=== PATIENT | female | born 1965 | race Caucasian/White ===

== ENCOUNTER 2019-11-01 11:21 | Inpatient (IN) | payer OTHER ==
[~2019-11-01] VITALS: Ht 160 cm; Wt 70.6 kg
[~2019-11-01 11:21] MED LIST: ALBU90OI INH; OXYACE10 PO; OXYACE5T PO
[2019-11-01 12:21] LABS: BASOPHILS ABSOLUTE AUTO 0.08 K/mm3 (0.00-0.23); BASOPHILS PERCENT AUTO 1 % (0-2); EOSINOPHILS ABSOLUTE AUTO 0.07 K/mm3 (0.00-0.68); EOSINOPHILS PERCENT AUTO 1 % (0-6); Hematocrit 43.8 % (33.0-51.0); IMMATURE GRAN ABSOLUTE AUTO 0.09 K/mm3 (0.00-0.10); IMMATURE GRAN PERCENT AUTO 1 % (0-1); LYMPHOCYTES ABSOLUTE AUTO 1.64 K/mm3 (0.84-5.20); LYMPHOCYTES PERCENT AUTO 13 % (21-46); MONOCYTES ABSOLUTE AUTO 0.92 K/mm3 (0.16-1.47); MONOCYTES PERCENT AUTO 8 % (4-13); Mean Corpuscular HGB 29.5 pg (26.0-34.0); Mean Corpuscular Volume 92 fL (80-100); Mean Platelet Volume 9.4 fL (9.1-12.4); NEUTROPHILS ABSOLUTE AUTO 9.54 K/mm3 (1.96-9.15); NEUTROPHILS PERCENT AUTO 77 % (41-73); Platelet Count 508 K/mm3 (150-400); RDW Coefficient Variation 13.2 % (11.7-14.2); RDW Standard Deviation 44.9 fL (35.1-46.3); Red Blood Cell Count 4.74 M/mm3 (3.80-5.20); White Blood Cell Count 12.34 K/mm3 (4.00-11.30)
[2019-11-01 12:44] LABS: Alanine Aminotransfer (ALT/SGP 17 U/L (12-78); Albumin, Blood 2.3 g/dL (3.4-5.0); Albumin/Globulin Ratio 0.5 (0.8-1.8); Alk Phos 157 U/L (50-136); Anion Gap 8 mmol/L (6-16); Aspartate Aminotrans (AST/SGOT 12 U/L (12-37); Bilirubin, Total 0.3 mg/dL (0.1-1.0); Blood Urea Nitrogen 15 mg/dL (8-24); Bun/Creatinine Ratio 19.9 (12.0-20.0); CO2, Blood 29 mmol/L (21-32); Calcium, Blood 9.6 mg/dL (8.5-10.1); Chloride, Blood 103 mmol/L (98-108); Creatinine, Blood 0.76 mg/dL (0.40-1.00); Globulin, Blood 5.1 g/dL (2.2-4.0); Glomerular Filtration Rate >60 (60-); Glucose, Blood 103 mg/dL (70-99); Potassium, Blood 3.5 mmol/L (3.5-5.5); Sodium, Blood 140 mmol/L (136-145); Total Protein, Blood 7.4 g/dL (6.4-8.2); Troponin I <0.015 ng/mL (0.000-0.040)
[2019-11-01 12:53] LABS: Influenza A Negative (NEGATIVE); Influenza B Negative (NEGATIVE)
--- NOTE | 2019-11-01 19:00 | NUR ---
PT. LYING QUIETLY SEVERAL FAMILY MEMBERS IN ROOM. NO NOTEABLE CHANGES SINCE COMIMG TO FLOOR,
--- NOTE | 2019-11-02 01:58 | NUR ---
BEGINNING SHIFT SUMMARY ASSUMED CARE OF PT AT 1900. PT IS A/O X4, FAMILY PRESENT. PT STATES THAT SHE IS FEELING BETTER. HEART SOUNDS REGULAR. FINE CRACKLES AT BASES OF LUNGS, ON 2L O2, NORMALLY RA, HAS HACKING AND PRODUCTIVE COUGH, PT DENIES SOB/ DYSPNEA AT THIS TIME. PT HAD INCONTINENCE EPISODE DUE TO COUGH. PT IS HOT AND SWEATY, PT STATES THAT SHE IS HAVING HOT FLASHES OCCATIONALLY. PT IS CURRENTLY AWAKE COUGHING, CALL LIGHT IN REACH, BED IN LOWEST POSTION, WILL CONTINUE TO MONITOR.
[2019-11-02 05:22] LABS: BASOPHILS ABSOLUTE AUTO 0.02 K/mm3 (0.00-0.23); BASOPHILS PERCENT AUTO 0 % (0-2); EOSINOPHILS PERCENT AUTO 0 % (0-6); Hematocrit 44.6 % (33.0-51.0); Hemoglobin 14.1 g/dL (11.5-16.0); IMMATURE GRAN ABSOLUTE AUTO 0.07 K/mm3 (0.00-0.10); IMMATURE GRAN PERCENT AUTO 1 % (0-1); LYMPHOCYTES ABSOLUTE AUTO 0.91 K/mm3 (0.84-5.20); LYMPHOCYTES PERCENT AUTO 9 % (21-46); MONOCYTES ABSOLUTE AUTO 0.15 K/mm3 (0.16-1.47); MONOCYTES PERCENT AUTO 1 % (4-13); Mean Corpuscular HGB 29.4 pg (26.0-34.0); Mean Corpuscular HGB Conc 31.6 g/dL (31.5-36.5); Mean Corpuscular Volume 93 fL (80-100); Mean Platelet Volume 9.3 fL (9.1-12.4); NEUTROPHILS ABSOLUTE AUTO 9.61 K/mm3 (1.96-9.15); NEUTROPHILS PERCENT AUTO 89 % (41-73); Platelet Count 581 K/mm3 (150-400); RDW Coefficient Variation 13.2 % (11.7-14.2); RDW Standard Deviation 45.2 fL (35.1-46.3); White Blood Cell Count 10.76 K/mm3 (4.00-11.30)
[2019-11-02 05:50] LABS: Alanine Aminotransfer (ALT/SGP 15 U/L (12-78); Albumin, Blood 2.4 g/dL (3.4-5.0); Albumin/Globulin Ratio 0.5 (0.8-1.8); Alk Phos 149 U/L (50-136); Anion Gap 8 mmol/L (6-16); Aspartate Aminotrans (AST/SGOT 12 U/L (12-37); Bilirubin, Total 0.2 mg/dL (0.1-1.0); Blood Urea Nitrogen 15 mg/dL (8-24); Bun/Creatinine Ratio 22.2 (12.0-20.0); CO2, Blood 26 mmol/L (21-32); Calcium, Blood 9.7 mg/dL (8.5-10.1); Chloride, Blood 106 mmol/L (98-108); Creatinine, Blood 0.68 mg/dL (0.40-1.00); Globulin, Blood 5.3 g/dL (2.2-4.0); Glomerular Filtration Rate >60 (60-); Glucose, Blood 122 mg/dL (70-99); Potassium, Blood 4.3 mmol/L (3.5-5.5); Sodium, Blood 140 mmol/L (136-145); Total Protein, Blood 7.7 g/dL (6.4-8.2)
--- NOTE | 2019-11-02 05:53 | NUR ---
END SHIFT SUMMARY PT SLEPT T/O THE NIGHT AFTER HER FIT OF INCONTINCE DUE TO COUGHING. PT CONTINES TO COUGH IN HER SLEEP. PULSE ELEVATED DUE TO COUGHING FIT BEFORE VITALS TAKEN, PULSE TAKEN MANUALLY AFTER 15MIN AND IT WAS 90. PT IS SLEEPING, CALL LIGHT IN REACH, BED IN LOWEST POSTION, WILL CONTINUE TO MONITOR UNTIL DAYSHIFT NURSE ARRIVES.
--- NOTE | 2019-11-02 14:09 | NUR ---
Advance directive education/spiritual care visit conducted. Upon receiving an admit referral for advance directive education, I visit patient. Patient has an advance directive form on her table and I ask patient about it and she says that someone had joannady talked with her and her daughter about it and that they were planning on filling it out together, later. I then talked with patient about her medical history, her family history and about her spiritual journey. Patient gets emotional when talking about how difficult things have been lately. I listen empathically, normalize patient experience, provide grief support, companionship and prayer. Patient responds well and displays evidence of restored santhosh. I will continue to remain available to patient and family.
--- NOTE | 2019-11-02 18:19 | NUR ---
SHIFT SUMMARY- PT A/O COOPERATIVE AND PLESANT. PT WORKING WITH RT. PT COUGHING PERIODICALLY DURING THIS SHIFT. PT HAS WHEEZES THROUGHOUT THE LUNGS.
--- NOTE | 2019-11-02 23:18 | NUR ---
BEGINNING SHIFT SUMMARY ASSUMED CARE OF PT AT 1900. PT IS A/O X4, PT DENIES N/T IN EXTREMITIES. PT HAS HAD HACKING NONPRODUCTIVE COUGH. PT REQUESTS ROBITUSSIN FREQUENTLY. HEART SOUNDS REGULAR, DENIES CP AT THIS TIME. EXPIRATORY WHEEZES T/O LUNGS, DENIES SOB/DYSPNEA. PT STATES THAT OVERALL SHE IS FEELING MUCH BETTER EXCEPT FOR HER COUGH. CALL LIGHT IN REACH, BED IN LOWEST POSITION, WILL CONTINUE TO MONITOR.
--- NOTE | 2019-11-03 03:36 | NUR ---
HEADACHE PT REPORTING 06/03 HEADACHE. DESCRIBES IT A "MIGRAINE". 600 MG IBUPROPHEN GIVEN WHICH PT REPORTS UNEFFECTIVE. ACTUALLY REPORTS PAIN WORSE THAN BEFORE TAKING IBUPROPHEN. PT STATES THAT SHE GETS MIGRAINES AT HOME AND TAKES EXCEDRIN MIGRAINE. CALLED DR. JERNIGAN WHO STATED HE WOULD PUT IN ORDERS FOR EXCEDRIN. WILL MEDICATE ONCE ORDERS AND PLACED AND CONTINUE TO MONITOR.
--- NOTE | 2019-11-03 04:45 | NUR ---
END SHIFT SUMMARY PT SLEPT T/O THE NIGHT. NO CARDIAC EVENTS. BP STILL ELEVATED. PT WALKED TO BATHROOM WITH SBA. PT IS CURRENTLY SLEEPING, CALL LIGHT IN REACH, BED IN LOWEST POSTION, WILL CONTINUE TO MONITOR UNTIL DAYSHIFT NURSE ARRIVES.
--- NOTE | 2019-11-03 04:50 | NUR ---
END SHIFT SUMMARY NO CONTINUE TO HAVE HEADACHE BUT IS ASLEEP AT THIS TIME. CALL LIGHT IN REACH, BED IN LOWEST POSITION WILL CONTINUE TO MONITOR UNTIL DAYSHIFT NURSE ARRIVES.
--- NOTE | 2019-11-04 04:34 | NUR ---
SHIFT SUMMARY: PT STABLE T/O SHIFT. C/O MILD HEADACHE WHICH PT REPORTS BEGINNING OF A MIGRAINE. GIVEN IV TORADOL PER EMAR WHICH WAS EFFECTIVE. PT HAVING OCC EPISODES OF HACKING/COUGHING. COUGH IS DRY AND HARSH. EXPIRATORY WHEEZES AUSCULTATED THROUGHOUT. O2 SATS STABLE ON RA. PT APPEARS SOB WITH ACTIVITY. NON PRODUCTIVE. SALINE LOCKED. LM PO. DENIES N/V.
[2019-11-04 05:48] LABS: BASOPHILS ABSOLUTE AUTO 0.05 K/mm3 (0.00-0.23); BASOPHILS PERCENT AUTO 1 % (0-2); EOSINOPHILS ABSOLUTE AUTO 0.05 K/mm3 (0.00-0.68); EOSINOPHILS PERCENT AUTO 1 % (0-6); Hemoglobin 12.1 g/dL (11.5-16.0); IMMATURE GRAN PERCENT AUTO 1 % (0-1); LYMPHOCYTES ABSOLUTE AUTO 2.08 K/mm3 (0.84-5.20); LYMPHOCYTES PERCENT AUTO 22 % (21-46); MONOCYTES ABSOLUTE AUTO 1.21 K/mm3 (0.16-1.47); MONOCYTES PERCENT AUTO 13 % (4-13); Mean Corpuscular HGB Conc 30.3 g/dL (31.5-36.5); Mean Platelet Volume 9.6 fL (9.1-12.4); NEUTROPHILS ABSOLUTE AUTO 5.93 K/mm3 (1.96-9.15); NEUTROPHILS PERCENT AUTO 63 % (41-73); Platelet Count 498 K/mm3 (150-400); RDW Coefficient Variation 13.5 % (11.7-14.2); Red Blood Cell Count 4.17 M/mm3 (3.80-5.20); White Blood Cell Count 9.42 K/mm3 (4.00-11.30)
[2019-11-04 05:50] LABS: Mean Corpuscular Volume 96 fL (80-100)
[2019-11-04 06:01] LABS: Alanine Aminotransfer (ALT/SGP 45 U/L (12-78); Albumin, Blood 2.1 g/dL (3.4-5.0); Albumin/Globulin Ratio 0.5 (0.8-1.8); Alk Phos 112 U/L (50-136); Anion Gap 5 mmol/L (6-16); Aspartate Aminotrans (AST/SGOT 60 U/L (12-37); Bilirubin, Total 0.2 mg/dL (0.1-1.0); Blood Urea Nitrogen 20 mg/dL (8-24); Bun/Creatinine Ratio 26.8 (12.0-20.0); CO2, Blood 30 mmol/L (21-32); Calcium, Blood 8.4 mg/dL (8.5-10.1); Chloride, Blood 106 mmol/L (98-108); Creatinine, Blood 0.75 mg/dL (0.40-1.00); Globulin, Blood 3.9 g/dL (2.2-4.0); Glomerular Filtration Rate >60 (60-); Glucose, Blood 81 mg/dL (70-99); Potassium, Blood 3.6 mmol/L (3.5-5.5); Sodium, Blood 141 mmol/L (136-145)
[2019-11-04] MEDS ORDERED: ALBU3IS INH (14:55)
[2019-11-04] MEDS ORDERED: BENZ100A PO (14:55)
[2019-11-04] MEDS ORDERED: GUAI600T33 PO (14:55)
[2019-11-04] MEDS ORDERED: LEVFLO500 PO (14:56)
[2019-11-04] MEDS ORDERED: Prednisone10 MG PO (14:56)
--- NOTE | 2019-11-04 16:09 | NUR ---
DISCHARGE NOTE- PT WAS GIVEN VERBAL AND WRITTEN DISCHARGE INSTRUCTIONS AND ACKNOWLEDGED UNDERSTANDING OF THEM. PT RECIEVED ALL ABX IV TODAY. NEW ABX TO START TOMORROW. PT MEDS FAXED TO [facility], PER HER REQUEST. PT IV DC'D PRIOR TO DISCHARGE.
== END 2019-11-04 16:15 | disposition home or self-care (01) | DRG 871 ==
LOC: ER 11:21 → MEDS 13:49
PROVIDERS: Emergency Medicine; Nurse Practitioner Acute Care; Physician Assistant; ADMIT Internal Medicine
DX: A41.9 Sepsis, unspecified organism (principal); J18.9 Pneumonia, unspecified organism; J44.0 Chronic obstructive pulmonary disease with (acute) lower respiratory infection; J44.1 Chronic obstructive pulmonary disease with (acute) exacerbation; J20.9 Acute bronchitis, unspecified; Z87.891 Personal history of nicotine dependence
CPT/HCPCS: 36415; 71046; 80053; 83605; 83880; 84484; 85025; 87040; 87070; 87205; 87449; 87804; 90686; 93005; 93010; 94640; 94760; 96361; 96365; 96375; 99285-25; J0456; J0696; J1650; J1885; J2930; J7030; J7050; J7512

== ENCOUNTER 2022-01-30 13:08 | Inpatient (IN) | payer OTHER ==
[~2022-01-30] VITALS: Ht 195.6 cm; Wt 70.2 kg
[~2022-01-30 13:08] MED LIST changes: +ALBU3IS INH; +BENZ100A PO; +GUAI600T33 PO; +LEVFLO500 PO; +Prednisone10 MG PO
[2022-01-30 13:57] LABS: BASOPHILS ABSOLUTE AUTO 0.11 K/mm3 (0.00-0.23); BASOPHILS PERCENT AUTO 1 % (0-2); EOSINOPHILS ABSOLUTE AUTO 0.17 K/mm3 (0.00-0.68); EOSINOPHILS PERCENT AUTO 1 % (0-6); Hematocrit 51.8 % (33.0-51.0); IMMATURE GRAN ABSOLUTE AUTO 0.05 K/mm3 (0.00-0.10); IMMATURE GRAN PERCENT AUTO 0 % (0-1); LYMPHOCYTES ABSOLUTE AUTO 1.24 K/mm3 (0.84-5.20); LYMPHOCYTES PERCENT AUTO 9 % (21-46); MONOCYTES ABSOLUTE AUTO 1.48 K/mm3 (0.16-1.47); MONOCYTES PERCENT AUTO 10 % (4-13); Mean Corpuscular HGB 28.6 pg (26.0-34.0); Mean Corpuscular HGB Conc 30.9 g/dL (31.5-36.5); Mean Corpuscular Volume 93 fL (80-100); NEUTROPHILS ABSOLUTE AUTO 11.32 K/mm3 (1.96-9.15); NEUTROPHILS PERCENT AUTO 79 % (41-73); Platelet Count 355 K/mm3 (150-400); RDW Coefficient Variation 14.4 % (11.7-14.2); RDW Standard Deviation 49.6 fL (35.1-46.3); White Blood Cell Count 14.37 K/mm3 (4.00-11.30)
[2022-01-30 14:35] LABS: Influenza A, PCR NEGATIVE (NEGATIVE); Influenza B, PCR NEGATIVE (NEGATIVE); Resp Syncytial Virus, PCR NEGATIVE (NEGATIVE); SARS-Cov-2 (COVID-19) PCR, MMC NEGATIVE (NEGATIVE)
[2022-01-30 15:00] LABS: Alanine Aminotransfer (ALT/SGP 26 U/L (12-78); Albumin, Blood 3.2 g/dL (3.4-5.0); Albumin/Globulin Ratio 0.7 (0.8-1.8); Alk Phos 129 U/L (50-136); Anion Gap 6 mmol/L (6-16); Aspartate Aminotrans (AST/SGOT 16 U/L (12-37); Bilirubin, Total 0.4 mg/dL (0.1-1.0); Blood Urea Nitrogen 20 mg/dL (8-24); Bun/Creatinine Ratio 25.3 (12.0-20.0); CO2, Blood 32 mmol/L (21-32); Calcium, Blood 9.9 mg/dL (8.5-10.1); Chloride, Blood 101 mmol/L (98-108); Creatinine, Blood 0.79 mg/dL (0.40-1.00); Globulin, Blood 4.9 g/dL (2.2-4.0); Glomerular Filtration Rate >60 (60-); Glucose, Blood 119 mg/dL (70-99); Potassium, Blood 3.9 mmol/L (3.5-5.5); Sodium, Blood 139 mmol/L (136-145); Total Protein, Blood 8.1 g/dL (6.4-8.2)
[2022-01-31 06:39] LABS: Hematocrit 50.7 % (33.0-51.0); Mean Corpuscular HGB 28.9 pg (26.0-34.0); Mean Corpuscular HGB Conc 31.6 g/dL (31.5-36.5); Mean Corpuscular Volume 92 fL (80-100); Mean Platelet Volume 9.8 fL (9.1-12.4); Platelet Count 312 K/mm3 (150-400); RDW Coefficient Variation 14.5 % (11.7-14.2); RDW Standard Deviation 49.3 fL (35.1-46.3); Red Blood Cell Count 5.53 M/mm3 (3.80-5.20)
--- NOTE | 2022-01-31 06:39 | NUR ---
SHIFT SUMMARY PT WAS A NEW ADMIT DURING THE NIGHT, ARRIVING ON THE FLOOR AT 2050. SHE WAS ADMITTED FOR ACUTE RESPIRATORY FAILURE. CURRENTLY ON 4L O2 VIA NC, SATTING > 90%. VITAL SIGNS OTHERWISE STABLE. TELE SHOWED NSR @ 83. MEDICATED FOR ACUTE HADDAD WITH PRN TYLENOL. PT DID REPORT SOB WITH ANY EXERTION AND COUGHING EPISODES. NO C/O NAUSEA. NO OTHER ACUTE CHANGES IN PT CONDITION NOTED SINCE ADMISSION. WILL CONTINUE TO MONITOR AND TREAT PER EMAR UNTIL HAND OFF TO DAY SHIFT RN.
[2022-01-31 06:56] LABS: Anion Gap 8 mmol/L (6-16); Blood Urea Nitrogen 17 mg/dL (8-24); Bun/Creatinine Ratio 26.9 (12.0-20.0); CO2, Blood 31 mmol/L (21-32); Calcium, Blood 9.7 mg/dL (8.5-10.1); Chloride, Blood 99 mmol/L (98-108); Creatinine, Blood 0.63 mg/dL (0.40-1.00); Glomerular Filtration Rate >60 (60-); Glucose, Blood 139 mg/dL (70-99); Sodium, Blood 138 mmol/L (136-145)
[2022-01-31 07:13] LABS: BASOPHILS ABSOLUTE MAN 0.09 K/mm3 (0.00-0.23); BASOPHILS PERCENT MAN 1 % (0-2); EOSINOPHILS PERCENT MAN 0 % (0-6); LYMPHOCYTES ABSOLUTE MAN 1.16 K/mm3 (0.84-5.20); LYMPHOCYTES PERCENT MAN 12 % (21-46); MONOCYTES ABSOLUTE MAN 0.19 K/mm3 (0.16-1.47); MONOCYTES PERCENT MAN 2 % (4-13); NEUTROPHILS ABSOLUTE MAN 8.24 K/mm3 (1.96-9.15); SEG NEUTROPHILS PERCENT MAN 85 % (41-73); TOTAL CELLS COUNTED 100
--- NOTE | 2022-01-31 18:45 | NUR ---
SHIFT SUMMARY: PATIENT ADMITTED LAST NIGHT FOR ACUTE RESPIRATORY FAILURE. CURRENTLY SATURATING 96% ON 4 LPM NC. PATIENT HAS INTERMITTENT COUGHING SPELLS, WHICH SHE SAYS CAUSE HER TO HAVE A HEADACHE. PATIENT MEDICATED WITH TYLENOL FOR HEADACHE. SPUTUM SAMPLE SENT TO LAB. PATIENT ABLE TO AMBULATE TO BATHROOM INDEPENDENTLY THROUGHOUT SHIFT. SHE HAS BEEN RESTING COMFORTABLY IN BED AND HAS BEEN SLEEPING OFF AND ON THROUGHOUT THE DAY.
--- NOTE | 2022-01-31 19:07 | NUR ---
SHIFT SUMMARY: PT A/O X 4 IND IN ROOM. NO ACUTE CHANGES THIS SHIFT. PT TOLERATING ANTIBIOTIC TX WELL. CONTROL CLERK SUBASSEMBLY DOCUMENTATION REVIEWED AND I AGREE WITH ASSESSMENT AND SHIFT SUMMARY DOCUMENTATION COMPLETED BY STUDENT RN.
[2022-02-01 04:19] LABS: BASOPHILS ABSOLUTE AUTO 0.02 K/mm3 (0.00-0.23); BASOPHILS PERCENT AUTO 0 % (0-2); EOSINOPHILS PERCENT AUTO 0 % (0-6); Hematocrit 48.7 % (33.0-51.0); Hemoglobin 15.2 g/dL (11.5-16.0); IMMATURE GRAN ABSOLUTE AUTO 0.05 K/mm3 (0.00-0.10); IMMATURE GRAN PERCENT AUTO 0 % (0-1); LYMPHOCYTES ABSOLUTE AUTO 0.96 K/mm3 (0.84-5.20); LYMPHOCYTES PERCENT AUTO 7 % (21-46); MONOCYTES ABSOLUTE AUTO 0.47 K/mm3 (0.16-1.47); MONOCYTES PERCENT AUTO 3 % (4-13); Mean Corpuscular HGB 28.6 pg (26.0-34.0); Mean Corpuscular HGB Conc 31.2 g/dL (31.5-36.5); Mean Corpuscular Volume 92 fL (80-100); Mean Platelet Volume 9.9 fL (9.1-12.4); NEUTROPHILS ABSOLUTE AUTO 12.32 K/mm3 (1.96-9.15); NEUTROPHILS PERCENT AUTO 89 % (41-73); Platelet Count 359 K/mm3 (150-400); RDW Coefficient Variation 14.4 % (11.7-14.2); RDW Standard Deviation 48.7 fL (35.1-46.3); Red Blood Cell Count 5.32 M/mm3 (3.80-5.20); White Blood Cell Count 13.82 K/mm3 (4.00-11.30)
[2022-02-01 04:34] LABS: Anion Gap 6 mmol/L (6-16); Blood Urea Nitrogen 26 mg/dL (8-24); CO2, Blood 32 mmol/L (21-32); Chloride, Blood 100 mmol/L (98-108); Glomerular Filtration Rate >60 (60-); Glucose, Blood 156 mg/dL (70-99); Potassium, Blood 4.3 mmol/L (3.5-5.5); Sodium, Blood 138 mmol/L (136-145)
--- NOTE | 2022-02-01 06:08 | NUR ---
SHIFT SUMMARY PT IS A 56 Y/O FEMALE, ADMITTED FOR ACUTE RESPIRATORY FAILURE. SHE IS A&O X 4, INDEPENDENT IN THE ROOM. CURRENTLY ON 4L O2 VIA NC, ON RA AT BASELINE. TELE SHOWED NSR IN THE 90S. VITAL SIGNS OTHERWISE STABLE. NO C/O PAIN OR NAUSEA. PT RESTED COMFORTABLE THROUGH THE NIGHT. NO ACUTE CHANGES IN PT CONDITION NOTED. WILL CONTINUE TO MONITOR AND TREAT PER EMAR UNTIL HAND OFF TO DAY SHIFT RN.
--- NOTE | 2022-02-01 19:09 | NUR ---
SHIFT SUMMARY: PATIENT ADMITTED 01/30 FOR ACUTE RESPIRATORY FAILURE. CURRENTLY SATURATING AT 99% ON 4 LPM NC. PATIENT RESTING AND INTERMITTENTLY SLEEPING THROUGHOUT SHIFT. SHE HAS OCCASIONAL COUGHING SPELLS. PATIENT RECEIVED GUAIFENESIN TWICE THROUGHOUT THE SHIFT, WHICH HELPED RELIEVE HER COUGH. AFTER COUGHING FITS, PATIENT REPORTS EXPERIENCING A HEADACHE. PT WAS GIVEN TYLENOL, WHICH RELIEVES HER PAIN SOMEWHAT. PATIENT ABLE TO AMBULATE INDEPENDENTLY TO BATHROOM. RESTING IN BED NOW.
--- NOTE | 2022-02-01 19:26 | NUR ---
REVIEWED STUDENT CUSTOMER ENERGY SPECIALIST AND AGREE WITH ASSESSMENT AND DOCUMENTATION.
[2022-02-02 04:38] LABS: BASOPHILS ABSOLUTE AUTO 0.04 K/mm3 (0.00-0.23); BASOPHILS PERCENT AUTO 0 % (0-2); EOSINOPHILS ABSOLUTE AUTO 0.07 K/mm3 (0.00-0.68); EOSINOPHILS PERCENT AUTO 0 % (0-6); Hematocrit 45.9 % (33.0-51.0); Hemoglobin 14.5 g/dL (11.5-16.0); IMMATURE GRAN ABSOLUTE AUTO 0.26 K/mm3 (0.00-0.10); IMMATURE GRAN PERCENT AUTO 2 % (0-1); LYMPHOCYTES ABSOLUTE AUTO 1.44 K/mm3 (0.84-5.20); LYMPHOCYTES PERCENT AUTO 9 % (21-46); MONOCYTES ABSOLUTE AUTO 0.65 K/mm3 (0.16-1.47); MONOCYTES PERCENT AUTO 4 % (4-13); Mean Corpuscular HGB 28.6 pg (26.0-34.0); Mean Corpuscular HGB Conc 31.6 g/dL (31.5-36.5); Mean Corpuscular Volume 91 fL (80-100); Mean Platelet Volume 9.8 fL (9.1-12.4); NEUTROPHILS ABSOLUTE AUTO 13.74 K/mm3 (1.96-9.15); NEUTROPHILS PERCENT AUTO 85 % (41-73); Platelet Count 360 K/mm3 (150-400); RDW Coefficient Variation 14.6 % (11.7-14.2); RDW Standard Deviation 48.9 fL (35.1-46.3); Red Blood Cell Count 5.07 M/mm3 (3.80-5.20)
--- NOTE | 2022-02-02 05:51 | NUR ---
SHIFT SUMMARY PT IS A 56 Y/O FEMALE, ADMITTED FOR ACUTE RESPIRATORY FAILURE. SHE IS A&O X 4, INDEPENDENT IN THE ROOM. CURRENTLY ON 4L O2 VIA NC, SATTING > 90%. ALL OTHER VITALS STABLE. DENIED ANY C/O ACUTE PAIN OR NAUSEA. PT DID REPORT MILD SOB WITH EXERTION AND OCCASIONAL COUGHING. NO OTHER ACUTE CHANGES IN PT CONDITION NOTED DURING THE NIGHT. WILL CONTINUE TO MONITOR AND TREAT PER EMAR UNTIL HAND OFF TO DAY SHIFT RN.
[2022-02-02] MEDS ORDERED: LACT PO (15:04)
[2022-02-02] MEDS ORDERED: CEFD300 PO (15:04)
[2022-02-02] MEDS ORDERED: AZIT250 PO (15:04)
[2022-02-02] MEDS ORDERED: PRED20 PO (15:05)
--- NOTE | 2022-02-02 16:05 | NUR ---
AGREE WITH STUDENT PUBLICATIONS EDITOR AND DOCUMENTATION.
--- NOTE | 2022-02-02 17:23 | NUR ---
DISCHARGE SUMMARY: I WENT OVER DISCHARGE INSTRUCTIONS WITH THE PATIENT, INCLUDING EDUCATION ABOUT HOME O2 USE AND SAFETY PRECAUTIONS ASSOCIATED WITH THAT, SUCH STAYING AWAY FROM FIRES, SMOKING, ETC. NEW PRESCRIPTIONS WERE ALSO REVIEWED WITH THE PATIENT. HER PICKED UP THE MEDICATIONS JUST PRIOR TO DISCHARGE. [facility] DELIVERED PORTABLE OXYGEN TANK PRIOR TO DISCHARGE. [facility] CALLED TO SET UP AN APPOINTMENT WITH DR. SENA. THEY SAID THEY WOULD CALL THE PATIENT TO ESTABLISH CARE. PATIENT WAS ESCORTED VIA WHEELCHAIR TO PRIVATE VEHICLE.
== END 2022-02-02 17:15 | disposition home or self-care (01) | DRG 871 ==
LOC: ER 13:08 → MEDS 20:53
PROVIDERS: Family Medicine; Physician Assistant; ADMIT Family Medicine
DX: A41.9 Sepsis, unspecified organism (principal); J96.01 Acute respiratory failure with hypoxia; J18.9 Pneumonia, unspecified organism; J44.0 Chronic obstructive pulmonary disease with (acute) lower respiratory infection; J44.1 Chronic obstructive pulmonary disease with (acute) exacerbation; Z20.822 Contact with and (suspected) exposure to COVID-19; D72.828 Other elevated white blood cell count; R65.20 Severe sepsis without septic shock; T38.0X5A Adverse effect of glucocorticoids and synthetic analogues, initial encounter; Z91.14 Patient's other noncompliance with medication regimen; Z90.710 Acquired absence of both cervix and uterus; Z87.891 Personal history of nicotine dependence
CPT/HCPCS: 0241U; 36415; 71045; 80048; 80053; 83605; 84484; 85025; 87040; 87070; 87205; 93005; 93010; 94640; 94644; 94664; 94760; 96374; 96375; 99285-25; A9270; J0696; J1650; J2930

== ENCOUNTER 2022-04-23 16:17 | Inpatient (IN) | payer OTHER ==
[~2022-04-23] VITALS: Ht 154.9 cm; Wt 71.8 kg
[~2022-04-23 16:17] MED LIST changes: +AZIT250 PO; +CEFD300 PO; +LACT PO; +PRED20 PO
[2022-04-23 16:40] LABS: Calcium, Ionized (POC) 1.16 mmol/L (1.10-1.46); Chloride (POC) 108 mmol/L (98-108); Creatinine (POC) 1.4 mg/dL (0.6-1.0); Glucose (ISTAT POC) 218 mg/dL (70-99); Potassium (POC) 5.2 mmol/L (3.5-5.5); Sodium (POC) 141 mmol/L (135-148); Total CO2 (POC) 23 mmol/L (21-32)
[2022-04-23 16:42] LABS: Hematocrit 45.4 % (33.0-51.0); Hemoglobin 13.8 g/dL (11.5-16.0); Mean Corpuscular HGB 29.4 pg (26.0-34.0); Mean Corpuscular HGB Conc 30.4 g/dL (31.5-36.5); Mean Corpuscular Volume 97 fL (80-100); Mean Platelet Volume 10.1 fL (9.1-12.4); NRBC ABSOLUTE 0.03 K/mm3 (0.00-0.02); NRBC Auto 0.1 /100 WBC (0.0-0.2); Platelet Count 258 K/mm3 (150-400); RDW Coefficient Variation 15.7 % (11.7-14.2); RDW Standard Deviation 56.7 fL (35.1-46.3)
[2022-04-23 16:43] LABS: PCO2 Arterial 92.8 mmHg (35-45); PO2 Arterial 247 mmHg (80-100); pH Blood Arterial 6.96 (7.35-7.45)
[2022-04-23 16:58] LABS: International Normalized Ratio 1.18; Prothrombin Time Results 12.3 Sec (9.7-11.5)
[2022-04-23 16:59] LABS: Albumin, Blood 2.6 g/dL (3.4-5.0); Bilirubin, Total 0.1 mg/dL (0.1-1.0); Bun/Creatinine Ratio 22.9 (12.0-20.0); Calcium, Blood 8.3 mg/dL (8.5-10.1); Creatinine, Blood 1.18 mg/dL (0.40-1.00); Globulin, Blood 2.6 g/dL (2.2-4.0); Potassium, Blood 5.3 mmol/L (3.5-5.5); Total Protein, Blood 5.2 g/dL (6.4-8.2)
[2022-04-23 17:06] LABS: BAND PERCENT MAN 14 % (0-8); BASOPHILS PERCENT MAN 0 % (0-2); EOSINOPHILS PERCENT MAN 0 % (0-6); LYMPHOCYTES ABSOLUTE MAN 7.77 K/mm3 (0.84-5.20); LYMPHOCYTES PERCENT MAN 29 % (21-46); METAMYELOCYTE ABSOLUTE MAN 0.53 K/mm3 (0.00-0.00); METAMYELOCYTE PERCENT MAN 2 % (0-0); MONOCYTES PERCENT MAN 0 % (4-13); NEUTROPHILS ABSOLUTE MAN 18.49 K/mm3 (1.96-9.15); SEG NEUTROPHILS PERCENT MAN 55 % (41-73); TOTAL CELLS COUNTED 100
[2022-04-23 18:05] LABS: Source, Urine Foley catheter
[2022-04-23 18:10] LABS: Appearance, Urine Clear (Clear); Bilirubin, Urine Neg (Neg); Blood, Urine Neg (Neg); Color, Urine Yellow (P-Yellow); Glucose Qualitative, Urine Neg (Neg); Ketones, Urine Neg (Neg); Leukocyte Esterase, Urine Neg (Neg); Nitrite, Urine Pos (Neg); Protein, Urine 1+ (Neg); Specific Gravity, Urine 1.025 (1.003-1.022); Urobilinogen, Urine NORM (Normal)
[2022-04-23 18:21] LABS: Bacteria Many /hpf; Squamous Epithelial Cells Few /hpf (Few); White Blood Cells, Urine 0-2 /hpf (0-5)
--- NOTE | 2022-04-23 19:00 | NUR ---
Assumed care of pt upon arrival to ICU 5 from emergency deparment at 1830. Report received from Jordana MAHAJAN. Pt connected to ventilator with ETT. SR per monitor. Pt on propofol at 24.5 mcg/kg/min. Increased to 60 mcg/kg/min because pt was breathing greater than 40 breaths per minute and was not getting full tidal volumes due to fighting vent. BP soft. Call placed to Dr Bell who ordered NS bolus. Report given to Dov MAHAJAN.
[2022-04-23] MEDS ORDERED: Ventolin/Prove6.7 GM (19:42)
--- NOTE | 2022-04-23 20:00 | NUR ---
ASSUMED CARE OF PT AT 1915. REPORT RECEIVED AT BEDSIDE. PT PRESENTS IN BED. INTUBATED POST CODE. PT HAS RECENTLY BEEN ADMITTED TO ROOM. ALLOWED DAUGHTER AND PT'S , NATHANIEL TO COME TO ROOM. BOTH PARTICIPATED IN ADMISSION PROCESS. ANSWERED QUESTIONS PER INTERVIEW. PT MAINTAINS SATURATIONS > 90 PERCENT. WILL REVIEW CHART AND PLAN OF CARE FOR THIS PT.
[2022-04-23 21:03] LABS: Bun/Creatinine Ratio 22.2 (12.0-20.0); Calcium, Blood 7.9 mg/dL (8.5-10.1); Creatinine, Blood 1.44 mg/dL (0.40-1.00); Potassium, Blood 5.2 mmol/L (3.5-5.5)
[2022-04-23 22:00] LABS: PO2 Arterial 92.7 mmHg (80-100)
--- NOTE | 2022-04-23 22:00 | NUR ---
WHILE RESPIRATORY THERAPISTS IN ROOM ATTENPTING ARTERIAL BLOOD GLUCOSE NOTED THAT PT'S BLOOD PRESSURES HAVE BEEN DECREASING. DID INTITIATE LEVOPHED AT [address] SOLORIO IN TO SEE PT. DECIDES TO PLACE CENTRAL LINE AND ARTERIAL LINES AND HE EXITS ROOM TO GATHER SUPPLIES. DURING THIS TIME, NOTED PT'S END TIDAL CO2 DRAMATICALLY DROPS TO 13, AND HER QRS BEGINS TO WIDEN. HEART RATE BECOMES BRADYCARDIC. PT ADMINISTERED AN AMP OF ATROPINE, AND DR SOLORIO ENTERS ROOM CPR IS BEGUN SECONDARY TO PEA. EPINEPHERINE ALSO PUSHED. SEE CODE SHEET FOR DETAILS. FAMILY AWARE, AND HAVE BEEN UPDATED. ROSC WAS RETURNED. ORDERS RECEIVED FROM DR SOLORIO. WILL CONTINUE TO MONITOR.
[2022-04-23 22:01] LABS: PCO2 Arterial 74.2 mmHg (35-45); pH Blood Arterial 7.12 (7.35-7.45)
[2022-04-23 22:49] LABS: SARS-Cov-2 (COVID-19) PCR, MMC NEGATIVE (NEGATIVE)
--- NOTE | 2022-04-24 02:27 | NUR ---
LEVOPHED HAS BEEN TITRATED BACK TO 12 MCG'S/MIN. VASOPRESSIN AT RATE. MAINTAINS MAP AT 65. ETT SUCTIONING RETURNS MADISON BLOOD. DR SOLORIO HAS BEEN AWARE. FULL BEDBATH WAS DONE FOR PT. NOTED PT HAD EMESIS IN HER HAIR. HAVE WASHED HAIR AND COMBED OUT. FAMILY HAS GONE HOME FOR THE NIGHT. PRIOR, HAVE ANSWERED THEIR QUESTIONS. UPDATED AND ALLOWED FAMILY TO PARICIPATE IN PLAN OF CARE FOR THIS PT. WILL CONTINUE TO MONITOR.
[2022-04-24 03:47] LABS: Hemoglobin 15.2 g/dL (11.5-16.0); Mean Corpuscular HGB 29.5 pg (26.0-34.0); Mean Corpuscular HGB Conc 30.4 g/dL (31.5-36.5); Mean Corpuscular Volume 97 fL (80-100); Mean Platelet Volume 9.7 fL (9.1-12.4); NRBC ABSOLUTE 0.02 K/mm3 (0.00-0.02); NRBC Auto 0.1 /100 WBC (0.0-0.2); Platelet Count 233 K/mm3 (150-400); RDW Coefficient Variation 15.9 % (11.7-14.2); Red Blood Cell Count 5.16 M/mm3 (3.80-5.20); White Blood Cell Count 14.38 K/mm3 (4.00-11.30)
[2022-04-24 04:02] LABS: Calcium, Blood 7.6 mg/dL (8.5-10.1); Creatinine, Blood 2.11 mg/dL (0.40-1.00); Magnesium, Blood 1.9 mg/dL (1.6-2.4); Phosphorus, Blood 7.6 mg/dL (2.5-4.9); Potassium, Blood 5.7 mmol/L (3.5-5.5)
--- NOTE | 2022-04-24 05:31 | NUR ---
PT HAS REMAINED ON LEVOPHED AT 12 MCG'S/MIN WHILE MAINTAINING MAP > 65. LUNGS WITH CONTINUED COARSENESS THROUGHOUT SINCE COMPRESSIONS. O2 SATURATIONS > 90 PERCENT. WILL CONTINUE TO MONITOR PT, AND WILL REPORT OFF TO ONCOMING RN.
--- NOTE | 2022-04-24 06:41 | NUR ---
SEDATION VACATION DONE THIS MORNING. PT DOES NOT FOLLOW COMMANDS. WILL NOT OPEN EYES TO COMMANDS. PUPILS REMAIN AT 4 MM. VERY SLUGGISH IN RESPONSE TO LIGHT. PT DOES HAVE INCREASE IN RESPIRATORY RATE AND EFFORT WHILE ON SEDATION. PLACED BACK TO SEDATION BEFORE.
--- NOTE | 2022-04-24 07:15 | NUR ---
Assumed care of pt from Dov MAHAJAN. Propofol 35 mcg/kg/min. Levophed 11 mcg/min. Vent settings ACVC 20/350/10/100%. SpO2 90% or greater. 8.0 cm ETT is 23 cm at lip, which is expected location.
--- NOTE | 2022-04-24 07:43 | NUR ---
Call placed to Dr Bell to notify provider of potassium 5.7. Provider states to recheck at 1300.
--- NOTE | 2022-04-24 08:00 | NUR ---
Noted that pt has not had urine output into cruz collection bag since arrival to unit yesterday. Bladder scan performed revealed 0 mL urine.
--- NOTE | 2022-04-24 09:10 | NUR ---
Sedation stopped at 0815. Pt is tolerating ventilator well. RR 32-34, but pt is achieving tidal volumes and not stacking breaths. No response to peripherally or centrally applied pain. Eyes have slight upward gaze. Pupils are 5 mm and have subtle (less than 1 mm) constriction and then quickly return to previous size in response to light. No corneal reflex. No cough. No gag.
[2022-04-24 10:26] LABS: PO2 Arterial 83.1 mmHg (80-100)
[2022-04-24 10:27] LABS: pH Blood Arterial 7.21 (7.35-7.45)
[2022-04-24 14:02] LABS: Albumin, Blood 2.4 g/dL (3.4-5.0); Anion Gap 14 mmol/L (6-16); Blood Urea Nitrogen 47 mg/dL (8-24); Bun/Creatinine Ratio 15.3 (12.0-20.0); CO2, Blood 18 mmol/L (21-32); Calcium, Blood 7.8 mg/dL (8.5-10.1); Chloride, Blood 106 mmol/L (98-108); Creatinine, Blood 3.07 mg/dL (0.40-1.00); Glomerular Filtration Rate 17 (60-); Glucose, Blood 92 mg/dL (70-99); Phosphorus, Blood 6.6 mg/dL (2.5-4.9); Potassium, Blood 5.9 mmol/L (3.5-5.5); Sodium, Blood 138 mmol/L (136-145)
--- NOTE | 2022-04-24 14:40 | NUR ---
Pt's daughter at bedside. Echocardiogram and chest CT completed. Discussed pt's renal function with Dr Moyer prior to performing chest CT. Currently, pt is receiving 8 mcg/min levophed. Esophageal temp probe given to patient, revealed that pt is febrile despite normal temporal measurements. Verified fever with oral thermometer. Cooling blankets applied to patient. Fever resolved.
--- NOTE | 2022-04-24 17:00 | NUR ---
Dr Moyer discussed echo and chest CT results with pt's daughter, Brenda. Per Brenda, pt will be DNR.
--- NOTE | 2022-04-24 18:09 | NUR ---
Patient At 1716, noted that patient had low blood pressure per arterial line 88/34 (53). Arterial line waveform did not correlated with heart montior. Pt repositioned supine and attempted to measure NIBP. Noted that HR and etCO2 decreasing. Repositioning did not change arterial line measurement or waveform. Levophed incrementally increased to 20 mcg/min. No improvement noted. Dr Moyer and pt's daughter, Brenda, at bedside. Per provider, levophed increased to 30 mcg/min. No improvement in arterial line or NIBP. Provider performed POCUS of heart and noted there was still activity. Provider ordered 1 mg epinephrine to be given. Given at 1720. No improvement noted. Provider updated family on prognosis. Pt at 1726. Per family request, pt taken off ventilator and disconnected from all support devices. Family visiting patient at this time. Plan to transfer pt to [facility] home. ME aware of case.
== END 2022-04-24 17:36 | DRG 871 ==
LOC: ER 16:17 → ICUE 17:52 → ICUW 17:52 → ICUE 18:49
PROVIDERS: Emergency Medicine; Internal Medicine Critical Care Medicine; ADMIT Internal Medicine
PROC: 0BH17EZ Insertion of Endotracheal Airway into Trachea, Via Natural or Artificial Opening (ICD-10-PCS; principal; 2022-04-23)
PROC: 05HY33Z Insertion of Infusion Device into Upper Vein, Percutaneous Approach (ICD-10-PCS; 2022-04-23)
PROC: 5A12012 Performance of Cardiac Output, Single, Manual (ICD-10-PCS; 2022-04-23)
PROC: 5A1945Z Respiratory Ventilation, 24-96 Consecutive Hours (ICD-10-PCS; 2022-04-23)
PROC: 04HY32Z Insertion of Monitoring Device into Lower Artery, Percutaneous Approach (ICD-10-PCS; 2022-04-23)
PROC: 3E03329 Introduction of Other Anti-infective into Peripheral Vein, Percutaneous Approach (ICD-10-PCS; 2022-04-23)
PROC: 3E033XZ Introduction of Vasopressor into Peripheral Vein, Percutaneous Approach (ICD-10-PCS; 2022-04-24)
PROC: 4A133B1 Monitoring of Arterial Pressure, Peripheral, Percutaneous Approach (ICD-10-PCS; 2022-04-24)
PROC: 4A133J1 Monitoring of Arterial Pulse, Peripheral, Percutaneous Approach (ICD-10-PCS; 2022-04-24)
DX: A41.9 Sepsis, unspecified organism (principal); I46.9 Cardiac arrest, cause unspecified; J69.0 Pneumonitis due to inhalation of food and vomit; J96.01 Acute respiratory failure with hypoxia; R40.20 Unspecified coma; R65.21 Severe sepsis with septic shock; N17.9 Acute kidney failure, unspecified; J44.1 Chronic obstructive pulmonary disease with (acute) exacerbation; Z66 Do not resuscitate; I27.20 Pulmonary hypertension, unspecified; D72.825 Bandemia; Z20.822 Contact with and (suspected) exposure to COVID-19; R77.8 Other specified abnormalities of plasma proteins; E87.5 Hyperkalemia; Z87.891 Personal history of nicotine dependence; Z90.710 Acquired absence of both cervix and uterus; Z88.5 Allergy status to narcotic agent; Z88.6 Allergy status to analgesic agent; Z79.51 Long term (current) use of inhaled steroids; Z79.52 Long term (current) use of systemic steroids; Z79.899 Other long term (current) drug therapy; Z78.1 Physical restraint status
CPT/HCPCS: 31500; 31720; 36415; 36556; 36600; 36620; 51702; 70450; 71045; 71275; 80047; 80048; 80053; 80069; 81001; 82330; 82803; 83735; 84100; 84484; 85014; 85025; 85027; 85610; 85730; 87040; 87070; 87077; 87086; 87186; 87205; 93005; 93010; 93306; 94002; 94003; 94640; 94644; 94664; 96365-59; 96375-59; 96376-59; 99291-25; A9270; C1751; C9113; J0171; J0610; J0696; J1650; J1940; J2704; J2930; J3010; J7030; J7040; J7060; J7120; Q9967; U0004